=== PATIENT | female | born 1975 | race Asian ===

== ENCOUNTER 2024-05-22 13:32 | Emergency (ER) | payer MEDICAID ==
[~2024-05-22] VITALS: Ht 162.6 cm; Wt 99.4 kg
[2024-05-22 14:52] LABS: PH 5.5 (5.0-8.5); URINE APPEARANCE CLEAR (CLEAR/HAZY); URINE BLOOD NEGATIVE (NEGATIVE); URINE COLOR YELLOW (YELLOW); URINE GLUCOSE NEGATIVE (NEGATIVE); URINE KETONE NEGATIVE (NEGATIVE); URINE NITRATE NEGATIVE (NEGATIVE); URINE PROTEIN(semi-quant) NEGATIVE (NEGATIVE); URINE UROBILINOGEN 0.2 E.U/dL (0.2-1.0)
[2024-05-22 15:08] LABS: COLLECTION METHOD CLEAN CATCH
[2024-05-22 15:17] LABS: BASO # 0.1 K/mm3 (0.0-0.2); BASO % 0.8 % (0.0-2.0); EOS # 0.3 K/mm3 (0.0-0.7); EOS % 3.4 % (0.0-4.0); GRAN # 4.2 K/mm3 (1.4-6.5); GRAN % 57.4 % (42.2-75.2); HEMATOCRIT 37.5 % (37.0-47.0); HEMOGLOBIN 12.3 g/dl (12.5-16.0); LYMPH # 2.2 K/mm3 (1.2-3.4); LYMPH % 29.6 % (20.0-51.0); MEAN CELL VOLUME 90 fl (80.0-100.0); MEAN CORPUSCULAR HEMOGLOBIN 30 pg (27-31); MEAN CORPUSCULAR HGB CONC 33 g/dl (33.0-37.0); MEAN PLATELET VOLUME 9.6 fl (7.4-10.4); MONO # 0.6 K/mm3 (0.1-0.6); MONO % 8.4 % (1.7-9.3); PLATELET COUNT 288 K/mm3 (130-400); RED BLOOD COUNT 4.17 M/mm3 (4.10-5.30)
[2024-05-22 15:33] LABS: ALBUMIN 3.4 g/dL (3.5-5.0); BILIRUBIN,TOTAL 0.3 mg/dL (0.2-1.2); CREATININE, serum 0.71 mg/dL (0.57-1.11); POTASSIUM 3.9 mEq/L (3.5-4.5); TOTAL PROTEIN 6.8 g/dl (6.2-8.1)
--- NOTE | 2024-05-22 15:59 | NUR ---
JESSA consulted by ER physician to provide community resources for patient to connect with [facility] locally. SW provided print out for [facility] Relocation Team. Physician indicated no other resources were needed at this time. RN stated that a patient care representative had brought patient to ER earlier today Discharge: Home
[2024-05-22 16:54] VITALS: BP 138/86; PULSE 64; TEMP 97.7
== END 2024-05-22 16:58 | disposition home or self-care (01) ==
LOC: COL.ER 13:32
PROVIDERS: Emergency Medicine
DX: R53.1 Weakness (principal)